=== PATIENT | female | born 1980 | race Two or more races ===

== ENCOUNTER 2017-09-14 10:24 | Emergency (ER) | payer OTHER ==
[2017-09-14 10:29] VITALS: TEMP 99; BMI 31.0
[2017-09-14] MEDS ORDERED: amLODIPine BESYLATE 10 MG TABLET (FP) PO ONE (12:50)
[2017-09-14] MEDS ORDERED: HYDROCHLOROTHIAZIDE 25 MG TABLET (FP) PO ONE (12:51)
--- NOTE | 2017-09-14 12:52 | PDOC ---
History of Present Illness <Demond Roldan - Last Filed: 09/14/17 13:02> - History of Present Illness Initial Comments: 09/14/17 12:59 "The patient is a 37 year old female with a significant PMH of HTN and diabetes who presents to the emergency department from Dr. Jiang's office for evaluation of high blood pressure. As per Dr. Jiang's note, the patient had a blood pressure of 200/118 in her office, prompting her to send the patient to the ED. The patient reports she has not taken her diabetes or HTN medications for over a year as she was uninsured and could not access her medication. The patient denies any complaints other than mild frontal headache that has been intermittent for weeks. Denies N/V. Denies neck pain. Denies CP/SOB. Denies leg swelling. Denies F/C. Allergies: NKA Past surgical history: None reported. Social history: Social alcohol use. No reported cigarette or drug use. PCP: Dr. Jiang " <Ld Kaiesr - Last Filed: 09/14/17 22:07> - General Chief Complaint: Blood Pressure Problem Stated Complaint: SENT BY PCP Time Seen by Provider: 09/14/17 12:40 Past History <Demond Roldan - Last Filed: 09/14/17 13:02> - Past Medical History CVA: No COPD: No Diabetes: Yes (NO MEDS) HTN: Yes (NO MEDS) - Surgical History Abdominal Surgery: Yes (HERNIA) - Suicide/Smoking/Psychosocial Hx Smoking History: Never smoked Hx Alcohol Use: Yes (SOCIAL) Drug/Substance Use Hx: No Substance Use Type: None <Ld Kaiser - Last Filed: 09/14/17 22:07> - Past Medical History Allergies/Adverse Reactions: Allergies Allergy/AdvReac Type Severity Reaction Status Date / Time No Known Allergies Allergy Verified 09/14/17 10:29 Home Medications: Ambulatory Orders Amlodipine Besylate [Norvasc -] 10 mg PO DAILY #7 tablet 09/14/17 Hydrochlorothiazide [Hctz -] 25 mg PO DAILY #7 tablet 09/14/17 Metoprolol Succinate 25 mg PO DAILY #7 tab.er.24h 09/14/17 Review of Systems - Review of Systems Comments:: 09/14/17 12:51 "GENERAL/CONSTITUTIONAL: No fever or chills. No weakness. HEAD, EYES, EARS, NOSE AND THROAT: No change in vision. No ear pain or discharge. No sore throat. CARDIOVASCULAR: No chest pain or shortness of breath. RESPIRATORY: No cough, wheezing, or hemoptysis. GASTROINTESTINAL: No nausea, vomiting, diarrhea or constipation. GENITOURINARY: No dysuria, frequency, or change in urination. MUSCULOSKELETAL: No joint or muscle swelling or pain. No neck or back pain. SKIN: No rash NEUROLOGIC: Mild frontal headache, no vertigo, loss of consciousness, or change in strength/sensation. ENDOCRINE: No increased thirst. No abnormal weight change. HEMATOLOGIC/LYMPHATIC: No anemia, easy bleeding, or history of blood clots. ALLERGIC/IMMUNOLOGIC: No hives or skin allergy. " <Ld Kaiser - Last Filed: 09/14/17 22:07> *Physical Exam - Vital Signs Last Vital Signs Temp Pulse Resp BP Pulse Ox 99.0 F 76 20 183/109 99 09/14/17 10:25 09/14/17 10:25 09/14/17 10:25 09/14/17 10:25 09/14/17 10:25 <Demond Roldan - Last Filed: 09/14/17 13:02> - Vital Signs Last Vital Signs Temp Pulse Resp BP Pulse Ox 99.0 F 76 20 183/109 99 09/14/17 10:25 09/14/17 10:25 09/14/17 10:25 09/14/17 10:25 09/14/17 10:25 - Physical Exam Comments: 09/14/17 12:51 "GENERAL: Awake, alert, and fully oriented, in no acute distress HEAD: No signs of trauma EYES: PERRLA, EOMI, sclera anicteric, conjunctiva clear ENT: Auricles normal inspection, hearing grossly normal, nares patent, oropharynx clear without exudates. Moist mucosa NECK: Nontender, no stepoffs, Normal ROM, supple, no lymphadenopathy, JVD, or masses LUNGS: Breath sounds equal, clear to auscultation bilaterally. No wheezes, and no crackles HEART: Regular rate and rhythm, normal S1 and S2, no murmurs, rubs or gallops ABDOMEN: Soft, nontender, normoactive bowel sounds. No guarding, no rebound. No masses EXTREMITIES: Normal range of motion, no edema. No clubbing or cyanosis. No cords, erythema, or tenderness NEUROLOGICAL: Cranial nerves II through XII intact. 5/5 strength and sensation in all extremities, Normal speech, normal gait SKIN: Warm, Dry, normal turgor, no rashes or lesions noted. " <Ou,Ld - Last Filed: 09/14/17 22:07> ED Treatment Course - LABORATORY CBC & Chemistry Diagram: 09/14/17 13:50 09/14/17 13:50 - RADIOLOGY Radiology Studies Ordered: Category Date Time Status HEAD CT WITHOUT CONTRAST [CT] Stat CT Scan 09/14/17 12:48 Ordered <Ou,Ld - Last Filed: 09/14/17 22:07> Medical Decision Making - Medical Decision Making 09/14/17 12:50 37 F with DM and HTN presenting to ER for elevated BP. Pt only complains of mild headache at this time but with non-focal neuro exam. - Labs - EKG - CT head non-con - Restart home norvasc and HCTZ 09/14/17 16:28 CBC,CMP WBC 9.6 K/mm3 (4.0-10.0) 09/14/17 13:50 RBC 4.89 M/mm3 (3.60-5.2) 09/14/17 13:50 Hgb 14.1 GM/dL (10.7-15.3) 09/14/17 13:50 Hct 42.9 % (32.4-45.2) 09/14/17 13:50 MCV 87.6 fl (80-96) 09/14/17 13:50 MCH 28.8 pg (25.7-33.7) 09/14/17 13:50 MCHC 32.8 g/dl (32.0-36.0) 09/14/17 13:50 RDW 14.3 % (11.6-15.6) 09/14/17 13:50 Plt Count 403 K/MM3 (134-434) D 09/14/17 13:50 MPV 7.9 fl (7.5-11.1) 09/14/17 13:50 Neutrophils % 67.1 % (42.8-82.8) 09/14/17 13:50 Lymphocytes % 25.2 % (8-40) 09/14/17 13:50 Monocytes % 7.2 % (3.8-10.2) 09/14/17 13:50 Eosinophils % 0.2 % (0-4.5) 09/14/17 13:50 Basophils % 0.3 % (0-2.0) 09/14/17 13:50 Sodium 141 mmol/L (136-145) 09/14/17 13:50 Potassium 3.4 mmol/L (3.5-5.1) L 09/14/17 13:50 Chloride 100 mmol/L (98-107) 09/14/17 13:50 Carbon Dioxide 31 mmol/L (21-32) 09/14/17 13:50 Anion Gap 10 (8-16) 09/14/17 13:50 BUN 9 mg/dL (7-18) 09/14/17 13:50 Creatinine 0.7 mg/dL (0.55-1.02) 09/14/17 13:50 Creat Clearance w eGFR > 60 (>60) 09/14/17 13:50 Random Glucose 178 mg/dL (74-106) H 09/14/17 13:50 Calcium 9.1 mg/dL (8.5-10.1) 09/14/17 13:50 Total Bilirubin 0.2 mg/dL (0.2-1.0) 09/14/17 13:50 AST 18 U/L (15-37) 09/14/17 13:50 ALT 32 U/L (12-78) 09/14/17 13:50 Alkaline Phosphatase 109 U/L (45-117) 09/14/17 13:50 Creatine Kinase 298 IU/L (26-192) H 09/14/17 13:50 Creatine Kinase Index 0.4 % (0.0-5.0) 09/14/17 13:50 CK-MB (CK-2) 1.328 ng/mL (0.5-3.6) 09/14/17 13:50 Troponin I < 0.02 ng/ml (0.00-0.05) 09/14/17 13:50 Total Protein 7.8 g/dl (6.4-8.2) 09/14/17 13:50 Albumin 3.6 g/dl (3.4-5.0) 09/14/17 13:50 CTH negative UA with blood, pt states she is currently on her period. Spoke with Dr. Jiang's office and confirmed that they would be able to see pt in office tomorrow. Pt reassessed - now asymptomatic. Pressure is improved. Pt is well appearing, clinically stable for DC. I discussed the physical exam findings, ancillary test results and final diagnoses with the patient. I answered all of the patient's questions. The patient was satisfied with the care received and felt comfortable with the discharge plan and treatment plan. The patient agrees to follow up with the primary care physician within 24-72 hours. <Ld Kaiser - Last Filed: 09/14/17 22:07> *DC/Admit/Observation/Transfer - Attestations Scribe Attestion: 09/14/17 13:02 Documentation prepared by Demond Roldan, acting as medical billing assistant for Ld Kaiser MD. <Demond Roldan - Last Filed: 09/14/17 13:02> - Attestations Physician Attestion: 09/14/17 16:36 I, Dr. Ld Kaiser MD, attest that this document has been prepared under my direction and personally reviewed by me in its entirety. I further attest, that it accurately reflects all work, treatment, procedures and medical decision -making performed by me. <Ld Kaiser - Last Filed: 09/14/17 22:07> Diagnosis at time of Disposition: Hypertension - Discharge Dispostion Disposition: HOME Condition at time of disposition: Good - Prescriptions Prescriptions: Amlodipine Besylate [Norvasc -] 10 mg PO DAILY #7 tablet Hydrochlorothiazide [Hctz -] 25 mg PO DAILY #7 tablet Metoprolol Succinate 25 mg PO DAILY #7 tab.er.24h - Referrals Referrals: Lou Jiang MD [Primary Care Provider] - - Patient Instructions Printed Discharge Instructions: DI for High Blood Pressure Additional Instructions: You must see Dr. Jiang TOMORROW to have your blood pressure medications adjusted. If you are unable to see Dr. Jiang, hot die picker the prescriptions for your blood pressure medications at the [facility] at [address] [place] [address]. Take them as prescribed. This is only a 1 week supply, so you MUST follow up with Dr. Jiang as soon as possible. Failure to control your blood pressure can result in serious heart disease, kidney failure, other illness, disability, or . If you experience chest pain, shortness of breath, or any other concerning symptoms, return to the ER immediately. - Post Discharge Activity
[2017-09-14] MEDS ORDERED: HYDROCHLOROTHIAZIDE 25 MG TABLET (FP) ONE (13:10)
[2017-09-14] MEDS ORDERED: amLODIPine BESYLATE 5 MG TABLET (FP) ONE (13:10)
[2017-09-14 14:27] LABS: BASO % 0.3 % (0-2.0); EOS % 0.2 % (0-4.5); HEMATOCRIT 42.9 % (32.4-45.2); HEMOGLOBIN 14.1 GM/dL (10.7-15.3); LYMPH % 25.2 % (8-40); MCH 28.8 pg (25.7-33.7); MCHC 32.8 g/dl (32.0-36.0); MEAN CELL VOLUME 87.6 fl (80-96); MEAN PLT VOLUME 7.9 fl (7.5-11.1); MONO % 7.2 % (3.8-10.2); NEUT % 67.1 % (42.8-82.8); PLATELET COUNT 403 K/MM3 (134-434); RBC 4.89 M/mm3 (3.60-5.2); RDW 14.3 % (11.6-15.6); WHITE BLOOD COUNT 9.6 K/mm3 (4.0-10.0)
[2017-09-14 14:35] LABS: ALBUMIN 3.6 g/dl (3.4-5.0); ANION GAP 10 (8-16); BLOOD UREA NITROGEN 9 mg/dL (7-18); CALCIUM 9.1 mg/dL (8.5-10.1); CHLORIDE 100 mmol/L (98-107); CO2 31 mmol/L (21-32); CREATININE 0.7 mg/dL (0.55-1.02); GLUCOSE,RANDOM 178 mg/dL (74-106); POTASSIUM 3.4 mmol/L (3.5-5.1); SGOT/AST 18 U/L (15-37); SGPT/ALT 32 U/L (12-78); SODIUM 141 mmol/L (136-145); URINE APPEARANCE SLCLOUDY; URINE BILIRUBIN NEGATIVE (NEGATIVE); URINE BLOOD 3+ (NEGATIVE); URINE COLOR RED; URINE GLUCOSE (UA) 3+ (NEGATIVE); URINE KETONE TRACE (NEGATIVE); URINE LEUK ESTERASE NEGATIVE (NEGATIVE); URINE NITRITE NEGATIVE (NEGATIVE); URINE UROBILINOGEN NEGATIVE mg/dL (0.2-1.0)
[2017-09-14 14:40] LABS: ALK PHOS 109 U/L (45-117); BILIRUBIN,TOTAL 0.2 mg/dL (0.2-1.0); TOT PROT 7.8 g/dl (6.4-8.2)
[2017-09-14 14:49] LABS: URINE PROTEIN 2+ (NEGATIVE)
[2017-09-14 14:55] LABS: EPI CELLS FEW /HPF (FEW)
--- NOTE | 2017-09-14 15:24 | EKG ---
Test Reason : Blood Pressure : / mmHG Vent. Rate : 068 BPM Atrial Rate : 068 BPM P-R Int : 128 ms QRS Dur : 084 ms QT Int : 416 ms P-R-T Axes : 029 -08 064 degrees QTc Int : 442 ms NORMAL SINUS RHYTHM POSSIBLE LEFT ATRIAL ENLARGEMENT LEFT VENTRICULAR HYPERTROPHY NONSPECIFIC ST AND T WAVE ABNORMALITY ABNORMAL ECG NO PREVIOUS ECGS AVAILABLE Confirmed by NISH SNOW MD ([id number]) on 09/14/2017 3:24:01 PM Referred By: Confirmed By:NISH SNOW MD
[2017-09-14] MEDS ORDERED: ACETAMINOPHEN 500 MG TABLET (FP) PO ONE (15:30)
[2017-09-14] MEDS ORDERED: LABETALOL HCL 200 MG TABLET (FP) PO ONE (15:36)
[2017-09-14] MEDS ORDERED: ACETAMINOPHEN 325 MG TABLET (FP) ONE (15:41)
[2017-09-14] MEDS ORDERED: LABETALOL HCL 100 MG TABLET (FP) ONE (15:41)
[2017-09-14 17:26] VITALS: BP 137/86; PULSE 82
== END 2017-09-14 17:26 | disposition home or self-care (01) ==
LOC: JER 10:24
DX: I10 Essential (primary) hypertension (principal); E11.9 Type 2 diabetes mellitus without complications
CPT/HCPCS: 36415; 70450-TC; 80053; 81003; 81015; 82550; 82553; 84484; 84703; 85025; 93005; 93010; 99283-25

== ENCOUNTER 2019-05-23 16:53 | Emergency (ER) | payer OTHER ==
[2019-05-23 17:14] VITALS: TEMP 98.3; BMI 29.5
[2019-05-23] MEDS ORDERED: FAMOTIDINE 20 MG/50 ML IVPB 20 MG/50 ML MG IVPB ONE ×2 (19:15→19:56)
[2019-05-23] MEDS ORDERED: ONDANSETRON 4 MG/2 ML VIAL IVPB ONE (19:15)
[2019-05-23] MEDS ORDERED: SODIUM CHLORIDE 1,000 ML IV STA (19:15)
[2019-05-23] MEDS ORDERED: ONDANSETRON 4 MG/2 ML VIAL ONE (19:56)
--- NOTE | 2019-05-23 20:01 | PDOC ---
Attending Attestation - Resident Resident Name: Shyann Snyder - ED Attending Attestation I have performed the following: I have examined & evaluated the patient, The case was reviewed & discussed with the resident, I agree w/resident's findings & plan - HPI HPI: 05/23/19 21:53 see resident hpi - Physicial Exam PE: 05/23/19 21:53 agree with resident exam - Medical Decision Making 05/23/19 21:54 39-year-old female with nausea and diarrhea status post recent trip to the [facility] labs are unremarkable other than slightly elevated blood glucose Patient is asymptomatic on reevaluation at 10 PM IV fluids and antacids. Plan for discharge home with outpatient follow-up 05/23/19 21:54
[2019-05-23 20:10] LABS: BASO % 0.6 % (0-2.0); EOS % 0.5 % (0-4.5); HEMATOCRIT 41.5 % (32.4-45.2); HEMOGLOBIN 13.7 GM/dL (10.7-15.3); LYMPH % 23.6 % (8-40); MCH 28.7 pg (25.7-33.7); MCHC 33.1 g/dl (32.0-36.0); MEAN CELL VOLUME 86.7 fl (80-96); MEAN PLT VOLUME 7.2 fl (7.5-11.1); MONO % 11.4 % (3.8-10.2); NEUT % 63.9 % (42.8-82.8); PLATELET COUNT 430 K/MM3 (134-434); RBC 4.79 M/mm3 (3.60-5.2); RDW 16.3 % (11.6-15.6); WHITE BLOOD COUNT 8.4 K/mm3 (4.0-10.0)
--- NOTE | 2019-05-23 20:28 | PDOC ---
History of Present Illness - General Chief Complaint: Pain, Acute Stated Complaint: NAUSEA/VOMITING/DIARRHEA Time Seen by Provider: 05/23/19 19:06 History Source: Patient Exam Limitations: Language Barrier - History of Present Illness Travel History: Yes ([place]) Initial Comments: 05/23/19 20:24 39yo F with PMH of HTN, DM presenting to ED with complaints of abdominal pain, nausea and diarrhea x5d. She travelled to [place] 1 week ago and returned 2d ago on Tuesday. She says she ate some meat on Tuesday and since then she has been having loose/liquid stools. Her has been having similar symptoms as well. She says the abdominal pain feels colicky/gassy. She denies vomiting, fevers, bloody stools, headaches, chest pain, sob, urinary symptoms. LMP 1w ago. PMD: Din PMH: see hpi Meds: see med rec Allergies: nkda Past History - Past Medical History Allergies/Adverse Reactions: Allergies Allergy/AdvReac Type Severity Reaction Status Date / Time No Known Allergies Allergy Verified 05/23/19 17:14 Home Medications: Ambulatory Orders Amlodipine Besylate [Norvasc -] 10 mg PO DAILY #7 tablet 09/14/17 Hydrochlorothiazide [Hctz -] 25 mg PO DAILY #7 tablet 09/14/17 Metoprolol Succinate 25 mg PO DAILY #7 tab.er.24h 09/14/17 CVA: No COPD: No Diabetes: Yes (NO MEDS) HTN: Yes (NO MEDS) - Surgical History Abdominal Surgery: Yes (HERNIA) - Psycho Social/Smoking Cessation Hx Smoking History: Never smoked Hx Alcohol Use: Yes Drug/Substance Use Hx: No Substance Use Type: None Review of Systems - Review of Systems Constitutional: No: Symptoms Reported HEENTM: No: Symptoms Reported Respiratory: No: Symptoms reported Cardiac (ROS): No: Symptoms Reported ABD/GI: Yes: See HPI : No: Symptoms Reported Musculoskeletal: No: Symptoms Reported Integumentary: No: Symptoms Reported Neurological: No: Symptoms reported *Physical Exam - Vital Signs Last Vital Signs Temp Pulse Resp BP Pulse Ox 98.3 F 73 17 161/103 H 98 05/23/19 17:12 05/23/19 18:55 05/23/19 18:55 05/23/19 18:55 05/23/19 17:12 - Physical Exam General Appearance: Yes: Nourished, Appropriately Dressed. No: Apparent Distress HEENT: positive: EOMI, VLADIMIR, Normal ENT Inspection Neck: positive: Trachea midline, Supple Respiratory/Chest: positive: Lungs Clear, Normal Breath Sounds Cardiovascular: positive: Regular Rhythm, Regular Rate, S1, S2. negative: Edema , JVD, Murmur Vascular Pulses: Dorsalis-Pedis (R): 2+, Doralis-Pedis (L): 2+ Gastrointestinal/Abdominal: positive: Normal Bowel Sounds, Soft. negative: Tender, Distended, Guarding, Rebound, Tenderness Musculoskeletal: positive: Normal Inspection Extremity: positive: Normal Capillary Refill. negative: Swelling, Calf Tenderness Integumentary: positive: Normal Color, Dry, Warm Neurologic: positive: rail car repairer II-XII NML intact, Fully Oriented, Alert, Normal Mood/ Affect, Normal Response, Motor Strength 12/31 ED Treatment Course - LABORATORY CBC & Chemistry Diagram: 05/23/19 20:00 05/23/19 20:00 - ADDITIONAL ORDERS Additional order review: 05/23/19 20:00 RBC 4.79 MCV 86.7 MCHC 33.1 RDW 16.3 H MPV 7.2 L Neutrophils % 63.9 Lymphocytes % 23.6 Monocytes % 11.4 H Eosinophils % 0.5 D Basophils % 0.6 - Medications Given in the ED: ED Medications Discontinued Medications Generic Name Dose Route Start Last Admin Trade Name Freq PRN Reason Stop Dose Admin Famotidine/Sodium Chloride 20 mg in 50 mls @ 100 mls/hr 05/23/19 19:15 20:07 Pepcid 20 Mg Premixed Ivpb - IVPB 05/23/19 19:44 100 mls/hr ONCE ONE Administration Sodium Chloride 1,000 mls @ 1,000 mls/hr 05/23/19 19:15 05/23/19 20:07 Normal Saline - IV 05/23/19 20:14 1,000 mls/hr ASDIR STA Administration Ondansetron HCl 4 mg 05/23/19 19:15 05/23/19 20:07 Zofran Injection IVPB 05/23/19 19:16 4 mg ONCE ONE Administration Medical Decision Making - Medical Decision Making 05/23/19 20:27 39yo F with PMH of HTN presenting to ED with complaints of abdominal pain, nausea and diarrhea x5d. She travelled to [place] 1 week ago and returned 2d ago on Tuesday. She says she ate some meat on Tuesday and since then she has been having loose/liquid stools. Her has been having similar symptoms as well. She says the abdominal pain feels colicky/gassy. She denies vomiting, fevers, bloody stools, headaches, chest pain, sob, urinary symptoms. LMP 1w ago. Pt presenting hypertensive. Says she has been having poor po intake due to nausea. Appears well. benign abdominal exam. Will get basic labs, ua will give fluids, zofran, pepcid. reassess. 05/23/19 21:49 labs wnl. patient feeling better. Safe for dc home. Will give return precautions. Pt agrees to plan. Discharge - Discharge Information Problems reviewed: Yes Clinical Impression/Diagnosis: Diarrhea Qualifiers: Diarrhea type: unspecified type Qualified Code(s): R19.7 - Diarrhea, unspecified Condition: Improved Disposition: HOME - Admission No - Follow up/Referral Referrals: Lou Jiang MD [Primary Care Provider] - - Patient Discharge Instructions Patient Printed Discharge Instructions: DI for Diarrhea and Traveler's Diarrhea -- Adult Additional Instructions: You were seen in the emergency room today for diarrhea. This is likely due to a food you ate while traveling. The diarrhea may last for a few days. Keep yourself well hydrated. Come back to the emergency room if pain gets worse, there is blood in the stool , you develop fever, you are unable to eat or drink anything or if any new concerning symptom develops. Thank you Lo vieron hoy en la caty de emergencias por diarrea. [place] probablemente se deba a rodrigue comida que comi mientras viajaba. La diarrea puede durar unos perez. Mantente sharath hidratado. Regrese a la caty de emergencias si el dolor empeora, hay anna en las heces, desarrolla fiebre, no puede comer ni beber nada o si se desarrolla algn sntoma nuevo. Leo - Post Discharge Activity
[2019-05-23 20:39] LABS: ALBUMIN 3.5 g/dl (3.4-5.0); BILIRUBIN,TOTAL 0.2 mg/dL (0.2-1); BLOOD UREA NITROGEN 13.4 mg/dL (7-18); CALCIUM 9.6 mg/dL (8.5-10.1); CREATININE 0.8 mg/dL (0.55-1.3); POTASSIUM 3.5 mmol/L (3.5-5.1); TOT PROT 7.3 g/dl (6.4-8.2)
[2019-05-23 21:35] LABS: URINE APPEARANCE CLEAR; URINE BILIRUBIN NEGATIVE (NEGATIVE); URINE COLOR YELLOW; URINE GLUCOSE (UA) 3+ (NEGATIVE); URINE KETONE NEGATIVE (NEGATIVE); URINE LEUK ESTERASE NEGATIVE (NEGATIVE); URINE NITRITE NEGATIVE (NEGATIVE); URINE PROTEIN NEGATIVE (NEGATIVE); URINE UROBILINOGEN 0.2 mg/dL (0.2-1.0)
[2019-05-23 21:57] VITALS: BP 159/98; PULSE 74
== END 2019-05-23 21:58 | disposition home or self-care (01) ==
LOC: JER 16:53
PROC: 3E033GC Introduction of Other Therapeutic Substance into Peripheral Vein, Percutaneous Approach (ICD-10-PCS; principal; 2019-05-23)
PROC: 3E033GC Introduction of Other Therapeutic Substance into Peripheral Vein, Percutaneous Approach (ICD-10-PCS; 2019-05-23)
DX: R19.7 Diarrhea, unspecified (principal); I10 Essential (primary) hypertension; E11.9 Type 2 diabetes mellitus without complications
CPT/HCPCS: 36415; 80053; 81003; 85025; 87086; 99283-25; J7030

== ENCOUNTER 2019-06-06 07:25 | Emergency (ER) | payer OTHER ==
[2019-06-06 07:40] VITALS: BMI 29.5
--- NOTE | 2019-06-06 09:17 | PDOC ---
Documentation entered by Ken Cleaning SCRIBE, acting as scribe for Maxwell Dubon MD. Maxwell Dubon MD: This documentation has been prepared by the Black bear Daniel, SCRIBE, under my direction and personally reviewed by me in its entirety. I confirm that the documentation accurately reflects all work, treatment, procedures, and medical decision making performed by me. History of Present Illness - General Chief Complaint: Pain, Acute Stated Complaint: ABD PAIN History Source: Patient Exam Limitations: No Limitations - History of Present Illness Initial Comments: 06/06/19 08:59 The patient is a 39 year old female with a past medical history of gallstones, HTN, and diabetes here today for evaluation of abdominal pain. The patient reports that developed abdominal pain around 2 AM this morning and came to the ED on the instructions of her GI. She describes it as a 9/10 in severity and notes associated nausea and 2 episodes of non bloody diarrhea around 2 AM. Patient denies headache, lightheadedness. Denies fever, chills. Denies chest pain, shortness of breath. Denies vomiting. LMP: 05/16/19 Allergies: NKA PCP: Lou Jiang GI: Eloy Gusman Past History - Past Medical History Allergies/Adverse Reactions: Allergies Allergy/AdvReac Type Severity Reaction Status Date / Time No Known Allergies Allergy Verified 06/06/19 07:31 Home Medications: Ambulatory Orders Amlodipine Besylate [Norvasc -] 10 mg PO DAILY #7 tablet 09/14/17 Hydrochlorothiazide [Hctz -] 25 mg PO DAILY #7 tablet 09/14/17 Metoprolol Succinate 25 mg PO DAILY #7 tab.er.24h 09/14/17 CVA: No COPD: No Diabetes: Yes (NO MEDS) HTN: Yes (NO MEDS) - Surgical History Abdominal Surgery: Yes (HERNIA) - Psycho Social/Smoking Cessation Hx Smoking History: Never smoked Hx Alcohol Use: Yes Drug/Substance Use Hx: No Substance Use Type: None Review of Systems - Review of Systems Able to Perform ROS?: Yes Comments:: 06/06/19 08:59 CONSTITUTIONAL: No fever, no chills, no fatigue EYES: No visual changes ENT: No ear pain, no sore throat CARDIOVASCULAR: No chest pain, no palpitations RESPIRATORY: No cough, no SOB GI: +abdominal pain. +nausea. +diarrhea. No vomiting, no constipation GENITOURINARY: No dysuria, no frequency, no hematuria MUSKULOSKELETAL: No backpain, no joint pain, no myalgias SKIN: No rash NEURO: No headache *Physical Exam - Vital Signs Last Vital Signs Temp Pulse Resp BP Pulse Ox 98.1 F 69 16 195/109 H 98 06/06/19 07:27 06/06/19 07:27 06/06/19 07:27 06/06/19 07:27 06/06/19 07:27 - Physical Exam Comments: 06/06/19 08:59 CONSTITUTIONAL: Well-appearing; well-nourished; in no apparent distress HEAD: Normocephalic; atraumatic EYES: PERRL; EOM intact, no slcera icterus ENMT: External appears normal; normal oropharynx NECK: Supple; non-tender; no cervical lymphadenopathy CARD: Normal S1, S2; no murmurs, rubs, or gallops RESP: Normal chest excursion with respiration; breath sounds clear and equal bilaterally; no wheezes, rhonchi, or rales ABD: +mild right upper quadrant pain. Soft, non-distended; no palpable organomegaly, no palpable hernias EXT: Normal ROM in all four extremities; non-tender to palpation; distal pulses intact SKIN: Warm, dry, no rash NEURO: No focal neurological deficiencies. ED Treatment Course - LABORATORY CBC & Chemistry Diagram: 06/06/19 09:02 06/06/19 09:02 - RADIOLOGY Radiology Studies Ordered: Category Date Time Status ABDOMEN US -LIMITED [US] Stat Ultrasound 06/06/19 08:51 Ordered Medical Decision Making - Medical Decision Making 06/06/19 09:16 Patient is well-appearing 39-year-old female with history of cholelithiasis who presents with atraumatic right upper quadrant pain associated with 2 bouts of loose watery stools and intermittent nausea. In the ER, patient is noted to be awake and alert, nontoxic-appearing, hypertensive on initial evaluation with minimal right upper quadrant tenderness to deep palpation only. Will rule out occult cholecystitis. Will hydrate. Will evaluate for electrolyte abnormalities. 12:39 06/06/2019 Patient reassessed. Patient is resting comfortably with minimal discomfort. Abdominal exam reveals no focal tenderness to palpation at this time. Patient tolerates p.o. CBC/is within normal limits without significant leukocytosis. CMP reveals normal LFTs. Right upper quadrant ultrasound reveals fatty liver and cholelithiasis without evidence of cholecystitis. Will discharge patient with outpatient follow-up with GI and surgery for evaluation of cholelithiasis. Discharge - Discharge Information Problems reviewed: Yes Clinical Impression/Diagnosis: Gall stones Condition: Stable Disposition: HOME - Admission No - Follow up/Referral Referrals: Lou Jiang MD [Primary Care Provider] - Ld Sherman MD [Staff Physician] - - Patient Discharge Instructions Patient Printed Discharge Instructions: DI for Gallstones Print Language: LATVIAN - Post Discharge Activity
[2019-06-06 09:18] LABS: BASO % 0.7 % (0-2.0); EOS % 0.2 % (0-4.5); HEMATOCRIT 39.6 % (32.4-45.2); HEMOGLOBIN 13.4 GM/dL (10.7-15.3); LYMPH % 19.5 % (8-40); MCH 28.9 pg (25.7-33.7); MCHC 33.8 g/dl (32.0-36.0); MEAN CELL VOLUME 85.5 fl (80-96); MEAN PLT VOLUME 7.6 fl (7.5-11.1); MONO % 8.1 % (3.8-10.2); NEUT % 71.5 % (42.8-82.8); PLATELET COUNT 407 K/MM3 (134-434); RBC 4.63 M/mm3 (3.60-5.2); RDW 16.5 % (11.6-15.6); WHITE BLOOD COUNT 9.6 K/mm3 (4.0-10.0)
[2019-06-06] MEDS ORDERED: KETOROLAC TROMETHAMINE 15 MG/ML VIAL IVPUSH ONE (09:45)
[2019-06-06 09:52] LABS: EPI CELLS 2.5 /HPF (0-5/HPF); HYALINE CASTS 2 /lpf (0-8); PH,URINE 7.5 (5.0-8.0); URINE APPEARANCE CLEAR; URINE BACTERIA 79.5 /hpf (NEGATIVE); URINE BILIRUBIN NEGATIVE (NEGATIVE); URINE COLOR YELLOW; URINE GLUCOSE (UA) 2+ (NEGATIVE); URINE KETONE NEGATIVE (NEGATIVE); URINE LEUK ESTERASE NEGATIVE (NEGATIVE); URINE NITRITE NEGATIVE (NEGATIVE); URINE PROTEIN 1+ (NEGATIVE); URINE RBC 0 /hpf (0-4); URINE UROBILINOGEN 0.2 mg/dL (0.2-1.0); URINE WBC 2 /hpf (0-5)
[2019-06-06 10:02] LABS: ALBUMIN 3.4 g/dl (3.4-5.0); BILIRUBIN,TOTAL 0.3 mg/dL (0.2-1); CALCIUM 8.9 mg/dL (8.5-10.1); CREATININE 0.8 mg/dL (0.55-1.3); POTASSIUM 3.4 mmol/L (3.5-5.1); TOT PROT 7.2 g/dl (6.4-8.2)
[2019-06-06] MEDS ORDERED: KETOROLAC TROMETHAMINE 15 MG/ML VIAL ONE (11:31)
[2019-06-06 12:53] VITALS: BP 167/79; PULSE 78; TEMP 98.5
== END 2019-06-06 13:07 | disposition home or self-care (01) ==
LOC: JER 07:25
PROC: 3E0333Z Introduction of Anti-inflammatory into Peripheral Vein, Percutaneous Approach (ICD-10-PCS; principal; 2019-06-06)
DX: K80.80 Other cholelithiasis without obstruction (principal); I10 Essential (primary) hypertension; E11.9 Type 2 diabetes mellitus without complications
CPT/HCPCS: 36415; 76705-TC; 80053; 81003; 83690; 84703; 85025; 96374; 99284-25

== ENCOUNTER 2019-06-15 04:38 | Day surgery (SDC) | payer OTHER ==
[2019-06-14 12:45] VITALS: BMI 29.5
[~2019-06-15 04:38] MED LIST: ceFAZolin SODIUM 1 GM VIAL IVPB ONE
[2019-06-15] MEDS ORDERED: BUPIVACAINE HCL/PF 0.5% (5 MG/ML) 30 ML VIAL IJ ONE ×2 (09:02→11:10)
--- NOTE | 2019-06-15 09:41 | HP ---
History & Physical Update - History History: No Change - Physical Physical: No Change - Assessment Assessment: No Change - Plan Plan: No Change (for lap maribel possible open; r/b/t/a's d/w the patient in the office and again this AM; informed consent obtained; d/w her in Bengali and Swedish.)
[2019-06-15] MEDS ORDERED: fentaNYL CITRATE 250 MCG/5 ML VIAL ONE (09:51)
[2019-06-15] MEDS ORDERED: PROPOFOL 20 ML ONE (09:51)
[2019-06-15] MEDS ORDERED: MIDAZOLAM HCL 2 MG/2 ML SINGLE DOSE VIAL ONE (09:52)
[2019-06-15] MEDS ORDERED: ceFAZolin SODIUM 1 GM VIAL ONE (10:25)
[2019-06-15] MEDS ORDERED: ceFAZolin SODIUM 1 GM VIAL IVPB ONE (10:25)
[2019-06-15] MEDS ORDERED: DEXAMETHASONE SOD PHOSPHATE 4 MG/1 ML VIAL ONE (11:05)
[2019-06-15] MEDS ORDERED: GLYCOPYRROLATE 0.2 MG/1 ML VIAL ONE (11:10)
[2019-06-15] MEDS ORDERED: NEOSTIGMINE METHYLSULFATE 0.5 MG/ML - 10 ML MDV ONE (11:10)
[2019-06-15] MEDS ORDERED: BENZOIN/ALOE VERA/STORAX/TOLU 58 ML BOTTLE TP ONE (11:12)
--- NOTE | 2019-06-15 11:30 | OP ---
Operative Note - Note: Operative Date: 06/15/19 Pre-Operative Diagnosis: cholelithiasis/chronic cholecystitis Operation: laparoscopic cholecystectomy Findings: chronic cholecystitis/cholelithiasis Post-Operative Diagnosis: Same as Pre-op Surgeon: Ld Sherman Electrophysiology Technician: Virginia Holt Anesthesiologist/RELIEF MAP MODELER: Nilda Salas Anesthesia: General Specimens Removed: gallbladder and contents Estimated Blood Loss (mls): 10 Drains & Tubes with Location: none
[2019-06-15] MEDS ORDERED: KETOROLAC TROMETHAMINE 30 MG/1 ML VIAL ONE (11:37)
[2019-06-15] MEDS ORDERED: ACETAMINOPHEN INJECTION 100 ML IVPB ONE (11:37)
[2019-06-15] MEDS ORDERED: KETOROLAC TROMETHAMINE 30 MG/1 ML VIAL IVPUSH ONE ×2 (11:40)
[2019-06-15] MEDS ORDERED: ACETAMINOPHEN 1000 MG/100 ML VIAL (NON FORMULARY) IVPB ONE ×2 (11:40→11:45)
[2019-06-15] MEDS ORDERED: ONDANSETRON 4 MG/2 ML VIAL IVPUSH PRN (11:40)
[2019-06-15] MEDS ORDERED: oxyCODONE HCL 5 MG TABLET PO PRN (11:40)
[2019-06-15] MEDS ORDERED: LACTATED RINGERS SOLUTION 1,000 ML IV SCH (11:45)
[2019-06-15 14:27] VITALS: TEMP 98.9
[2019-06-15 15:42] VITALS: BP 143/81; PULSE 76
--- NOTE | 2019-06-18 15:52 | OP ---
DATE OF OPERATION: 06/15/2019 PREOPERATIVE DIAGNOSIS: Chronic cholecystitis and cholelithiasis. POSTOPERATIVE DIAGNOSIS: Chronic cholecystitis and cholelithiasis. PROCEDURE: Laparoscopic cholecystectomy. SURGEON: Ld Sherman MD FOOTBALL PAD REPAIRER: BRADEN Osullivan ANESTHESIA: General. OPERATIVE FINDINGS: Chronic cholecystitis and cholelithiasis. The rest of the findings were unremarkable. DESCRIPTION OF PROCEDURE: The patient was placed on the operating room table in supine position. After the induction of general anesthesia, the patient's abdomen was prepped with ChloraPrep and draped in sterile fashion. Time-out was taken and then pneumoperitoneum established above the umbilicus using a Veress needle. Once 15 mm of intra- abdominal pressure was obtained, a 5-mm port was placed at the umbilicus. Additional lateral 5-mm ports and a subxiphoid 12-mm port were placed and laparoscopy carried out, and the previously noted findings were observed. The gallbladder was placed on cephalad and lateral traction, and dissection was begun at the neck of the gallbladder where the peritoneum was opened medially and laterally using blunt and sharp dissection and electrocautery. Dissection continued in the triangle of Calot where the cystic duct was identified coursing from the neck of the gallbladder distally to the common bile duct. It was dissected proximally and distally for length. Similarly, the artery was similarly identified and dissected. A critical view of safety was taken, and then the cystic duct divided proximally and distally using Endo Mitul after it was clipped twice proximally and distally with large hemoclips. The artery was similarly clipped and divided. Hemostasis was checked for and noted to be good and then the gallbladder was removed from the liver bed in a retrograde fashion using electrocautery. Prior to removal from the edge of the liver, hemostasis was again verified and then the gallbladder removed from the edge of the liver, placed in an EndoCatch, and brought out through the subxiphoid port. Pneumoperitoneum was reestablished, hemostasis verified again, and then the 5-mm lateral and subxiphoid ports were removed under laparoscopic vision without evidence of bleeding from the port sites. The umbilical port was removed and the pneumoperitoneum evacuated. All port sites were infiltrated with 0.5% Marcaine and the skin edges closed with 4- 0 Biosyn in a subcuticular and continuous fashion. Steri-Strips and Band-Aid dressings were placed and the procedure terminated at this point and the patient aroused from general anesthesia and transferred to the post anesthesia care unit in stable condition awake and alert. ESTIMATED BLOOD LOSS: 10 mL. REPLACEMENTS: Crystalloid. DRAINS: None. SPECIMENS: Gallbladder and contents to pathology. I, Ld Sherman, was physically present in the operating room from the time the patient was placed on the operating room table until she was transferred to the post anesthesia care unit in my company. MD PURNIMA [id number] MTDD
--- NOTE | 2019-06-19 17:13 | PATH ---
Surgical Pathology Report Patient Name: [facility]. Rec. #: [id number] /Age/Gender: 1980 (Age: 39) / F Account: [id number] Location: [facility] Taken: 06/15/2019 Received: 06/15/2019 Reported: 06/18/2019 Physicians: Ld Sherman MD Specimen(s) Received GALLBLADDER Clinical History Cholelithiasis, chronic cholecystitis Final Diagnosis GALLBLADDER, LAPAROSCOPIC CHOLECYSTECTOMY: CHRONIC CHOLECYSTITIS WITH CHOLELITHIASIS. Electronically Signed Meredith Rubio M.D. Gross Description Received in formalin, labeled "gallbladder," is a 7.5 x 2.5 x 2.5 cm. gallbladder with a 0.2 cm. in length portion of cystic duct attached. The outer surface is roa green with a focal defect and varies from smooth to shaggy. The lumen contains green, tenacious bile as well as a 0.4 cm in greatest dimension black, irregular cholelith. The mucosa is roa and velvety. The wall of the gallbladder measures 0.1 cm. in thickness. [employer] sections are submitted in one cassette. /06/15/2019 saudi06/15/2019
== END 2019-06-15 16:40 | disposition home or self-care (01) ==
LOC: JASU-SURG 04:38
PROVIDERS: ATTEND Surgery
PROC: 0FT44ZZ Resection of Gallbladder, Percutaneous Endoscopic Approach (ICD-10-PCS; principal; 2019-06-15 09:30)
DX: K80.44 Calculus of bile duct with chronic cholecystitis without obstruction (principal)
CPT/HCPCS: 82962; 84703; 86850; 86900; 86901; 88304-TC; 94760; J0131

== ENCOUNTER 2021-02-28 21:34 | Emergency (ER) | payer OTHER ==
[2021-02-28 21:54] VITALS: BMI 28.2
[2021-03-01] MEDS ORDERED: LIDOCAINE 5% TOPICAL PATCH TP ONE (00:51)
[2021-03-01] MEDS ORDERED: ACETAMINOPHEN 500 MG TABLET (FP) PO ONE (00:51)
[2021-03-01] MEDS ORDERED: METHOCARBAMOL 500 MG TABLET PO ONE (01:01)
[2021-03-01] MEDS ORDERED: ACETAMINOPHEN 325 MG TABLET (FP) ONE (01:18)
[2021-03-01] MEDS ORDERED: LIDOCAINE 5% TOPICAL PATCH ONE (01:19)
[2021-03-01] MEDS ORDERED: METHOCARBAMOL 500 MG TABLET ONE (01:19)
[2021-03-01 03:08] LABS: PH,URINE 5.5 (5.0-8.0); URINE APPEARANCE Clear; URINE BILIRUBIN Negative (NEGATIVE); URINE COLOR Yellow; URINE GLUCOSE (UA) 2+ (NEGATIVE); URINE KETONE Trace (NEGATIVE); URINE LEUK ESTERASE Negative (NEGATIVE); URINE NITRITE Negative (NEGATIVE); URINE PROTEIN Negative (NEGATIVE); URINE UROBILINOGEN 0.2 mg/dL (0.2-1.0)
[2021-03-01 03:13] LABS: URINE RBC 2 /uL (0-23.9); URINE WBC 16 /uL (0-25.8)
[2021-03-01 03:14] LABS: EPI CELLS 13 /uL (0-25.1); HYALINE CASTS 0 /uL (0-3.1); URINE BACTERIA 540 /uL (0-1359)
[2021-03-01 04:05] VITALS: BP 158/87; PULSE 69; TEMP 98.4
[2021-03-01] MEDS ORDERED: LIDOCAINE PATCH REMOVAL MC ONE (12:00)
== END 2021-03-01 05:19 | disposition home or self-care (01) ==
LOC: JER 21:34
DX: M54.5 Low back pain (principal); S76.311A Strain of muscle, fascia and tendon of the posterior muscle group at thigh level, right thigh, initial encounter
CPT/HCPCS: 81003; 84703; 93005; 93010; 99285-25

== ENCOUNTER 2021-03-27 04:18 | Day surgery (SDC) | payer OTHER ==
[2021-03-25 09:42] VITALS: BMI 28.2
[2021-03-27] MEDS ORDERED: LIDOCAINE HCL/PF 1% SDV 5ML VIAL ONE (07:30)
[2021-03-27] MEDS ORDERED: DEXAMETHASONE SOD PHOSPHATE 4 MG/1 ML VIAL ONE (07:30)
[2021-03-27 13:26] VITALS: BP 160/86; PULSE 78; TEMP 97.8
== END 2021-03-27 13:05 | disposition home or self-care (01) ==
LOC: JASU-SURG 04:18
PROVIDERS: ATTEND Pain Medicine Pain Medicine
DX: Z53.8 Procedure and treatment not carried out for other reasons (principal)
CPT/HCPCS: 81025

== ENCOUNTER → 2021-04-08 | Day surgery (SDC) | payer OTHER | END | disposition home or self-care (01) | LOC: JRADUS-SUR 08:14 | PROVIDERS: ATTEND Family Medicine | PROC: 0H9V3ZX Drainage of Bilateral Breast, Percutaneous Approach, Diagnostic (ICD-10-PCS; principal; 2021-04-08) | DX: D24.1 Benign neoplasm of right breast (principal) | CPT/HCPCS: 19083; 19084; 77066-TC; 87899; A4648 ==

== ENCOUNTER 2021-05-15 04:37 | Day surgery (SDC) | payer OTHER ==
[2021-05-12 17:21] VITALS: BMI 25.4
[2021-05-15] MEDS ORDERED: LIDOCAINE HCL/PF 1% SDV 5ML VIAL ONE (07:17)
[2021-05-15] MEDS ORDERED: DEXAMETHASONE SOD PHOSPHATE 10 MG/1 ML VIAL ONE (07:17)
[2021-05-15] MEDS ORDERED: LIDOCAINE HCL 1% PRESERVATIVE FREE - 30ML VIAL IJ ONE (10:49)
[2021-05-15] MEDS ORDERED: IOHEXOL 180 MG/1 ML ML IJ ONE (10:50)
[2021-05-15] MEDS ORDERED: DEXAMETHASONE SOD PHOSPHATE 10 MG/1 ML VIAL IM ONE ×2 (10:50→10:53)
[2021-05-15 11:41] VITALS: TEMP 98.9
[2021-05-15 11:43] VITALS: BP 152/91; PULSE 68
== END 2021-05-15 11:30 | disposition home or self-care (01) ==
LOC: JASU-SURG 04:37
PROVIDERS: ATTEND Pain Medicine Pain Medicine
PROC: 3E0R33Z Introduction of Anti-inflammatory into Spinal Canal, Percutaneous Approach (ICD-10-PCS; 2021-05-15)
PROC: 3E0R3BZ Introduction of Anesthetic Agent into Spinal Canal, Percutaneous Approach (ICD-10-PCS; principal; 2021-05-15 09:15)
DX: M54.16 Radiculopathy, lumbar region (principal)
CPT/HCPCS: 76000-TC-FY; 81025; J1100

== ENCOUNTER 2021-06-12 04:20 | Day surgery (SDC) | payer OTHER ==
[2021-06-08 17:46] VITALS: BMI 27.9
[2021-06-12 06:59] VITALS: TEMP 97.8
[2021-06-12] MEDS ORDERED: BUPIVACAINE HCL/PF 0.5% (5MG/ML) 10 ML VIAL ONE (07:04)
[2021-06-12] MEDS ORDERED: BUPIVACAINE HCL/PF 0.25% (2.5MG/ML) 10 ML VIAL ONE (07:04)
[2021-06-12] MEDS ORDERED: DEXAMETHASONE SOD PHOSPHATE 10 MG/1 ML VIAL ONE (07:04)
[2021-06-12] MEDS ORDERED: LIDOCAINE HCL/PF 1% SDV 5ML VIAL ONE (07:04)
[2021-06-12] MEDS ORDERED: SODIUM CHLORIDE 0.9% P/F 10 ML VIAL IJ ONE (07:14)
[2021-06-12] MEDS ORDERED: LIDOCAINE HCL/PF 2% SDV 5ML VIAL ONE (07:14)
[2021-06-12] MEDS ORDERED: LIDOCAINE 1% P/F 10 MG/ML VIAL INF ONE (08:34)
[2021-06-12] MEDS ORDERED: IOHEXOL 180 MG/1 ML ML IJ ONE (08:34)
[2021-06-12] MEDS ORDERED: BUPIVACAINE HCL/PF 0.75% 10 ML VIAL NR ONE (08:34)
[2021-06-12 09:09] VITALS: BP 139/77; PULSE 69
== END 2021-06-12 09:10 | disposition home or self-care (01) ==
LOC: JASU-SURG 04:20
PROVIDERS: ATTEND Pain Medicine Pain Medicine
PROC: 3E0T33Z Introduction of Anti-inflammatory into Peripheral Nerves and Plexi, Percutaneous Approach (ICD-10-PCS; 2021-06-12)
PROC: BR16YZZ Fluoroscopy of Lumbar Facet Joint(s) using Other Contrast (ICD-10-PCS; 2021-06-12)
PROC: 3E0T3BZ Introduction of Anesthetic Agent into Peripheral Nerves and Plexi, Percutaneous Approach (ICD-10-PCS; principal; 2021-06-12 08:15)
DX: M47.816 Spondylosis without myelopathy or radiculopathy, lumbar region (principal)
CPT/HCPCS: 76000-TC-FY; 81025; J1100

== ENCOUNTER 2021-07-03 04:27 | Day surgery (SDC) | payer OTHER ==
[2021-07-02 17:27] VITALS: BMI 27.4
[2021-07-03] MEDS ORDERED: BUPIVACAINE HCL/PF 0.5% (5MG/ML) 10 ML VIAL ONE (07:13)
[2021-07-03] MEDS ORDERED: BUPIVACAINE HCL/PF 0.25% (2.5MG/ML) 10 ML VIAL ONE (07:13)
[2021-07-03] MEDS ORDERED: LIDOCAINE HCL/PF 1% SDV 5ML VIAL ONE (07:13)
[2021-07-03] MEDS ORDERED: DEXAMETHASONE SOD PHOSPHATE 10 MG/1 ML VIAL ONE (07:13)
[2021-07-03] MEDS ORDERED: SODIUM CHLORIDE 0.9% P/F 10 ML VIAL IJ ONE (07:27)
[2021-07-03] MEDS ORDERED: LIDOCAINE HCL/PF 2% SDV 5ML VIAL ONE (07:27)
[2021-07-03] MEDS ORDERED: IOHEXOL 180 MG/1 ML ML IJ ONE ×2 (08:52→08:55)
[2021-07-03] MEDS ORDERED: LIDOCAINE HCL 1% PRESERVATIVE FREE - 30ML VIAL IJ ONE (08:55)
[2021-07-03] MEDS ORDERED: BUPIVACAINE HCL/PF 0.75% 10 ML VIAL NR ONE (08:56)
[2021-07-03 09:53] VITALS: BP 150/85; PULSE 67; TEMP 98.5
== END 2021-07-03 09:45 | disposition home or self-care (01) ==
LOC: JASU-SURG 04:27
PROVIDERS: ATTEND Pain Medicine Pain Medicine
PROC: BR16YZZ Fluoroscopy of Lumbar Facet Joint(s) using Other Contrast (ICD-10-PCS; 2021-07-03)
PROC: 3E0T3BZ Introduction of Anesthetic Agent into Peripheral Nerves and Plexi, Percutaneous Approach (ICD-10-PCS; principal; 2021-07-03 08:15)
DX: M47.816 Spondylosis without myelopathy or radiculopathy, lumbar region (principal); I10 Essential (primary) hypertension; E11.9 Type 2 diabetes mellitus without complications
CPT/HCPCS: 76000-TC-FY; 81025; J1100

== ENCOUNTER 2021-07-31 04:31 | Day surgery (SDC) | payer OTHER ==
[2021-07-30 12:58] VITALS: BMI 27.4
[2021-07-31] MEDS ORDERED: LIDOCAINE HCL/PF 2% SDV 5ML VIAL SNB ONE (14:40)
[2021-07-31] MEDS ORDERED: LIDOCAINE 1% P/F 10 MG/ML VIAL SNB ONE (14:40)
[2021-07-31] MEDS ORDERED: BUPIVACAINE HCL/PF 0.75% 10 ML VIAL NR ONE (14:40)
[2021-07-31] MEDS ORDERED: DEXAMETHASONE SOD PHOSPHATE 10 MG/1 ML VIAL IM ONE (14:40)
[2021-07-31 15:44] VITALS: TEMP 98
[2021-07-31 15:56] VITALS: BP 130/80; PULSE 74
== END 2021-07-31 15:59 | disposition home or self-care (01) ==
LOC: JASU-SURG 04:31
PROVIDERS: ATTEND Pain Medicine Pain Medicine
PROC: 3E0T3TZ Introduction of Destructive Agent into Peripheral Nerves and Plexi, Percutaneous Approach (ICD-10-PCS; principal; 2021-07-31 12:30)
DX: M47.816 Spondylosis without myelopathy or radiculopathy, lumbar region (principal)
CPT/HCPCS: 76000-TC-FY; 81025; J1100

== ENCOUNTER 2021-08-25 04:27 | Day surgery (SDC) | payer OTHER ==
[2021-08-24 09:59] VITALS: BMI 27.4
[~2021-08-25 04:27] MED LIST changes: +DEXAMETHASONE SOD PHOSPHATE 10 MG/1 ML VIAL IVPUSH ONE; +IOHEXOL 180 MG/1 ML ML IJ ONE; +LIDOCAINE HCL 1% PRESERVATIVE FREE - 30ML VIAL IJ ONE; -ceFAZolin SODIUM 1 GM VIAL IVPB ONE
[2021-08-25] MEDS ORDERED: LIDOCAINE HCL/PF 1% SDV 5ML VIAL ONE ×2 (07:16→13:46)
[2021-08-25] MEDS ORDERED: BUPIVACAINE HCL/PF 0.75% 10 ML VIAL ONE ×2 (07:16→13:47)
[2021-08-25] MEDS ORDERED: DEXAMETHASONE SOD PHOSPHATE 10 MG/1 ML VIAL ONE (07:16)
[2021-08-25] MEDS ORDERED: LIDOCAINE HCL/PF 2% SDV 5ML VIAL ONE (07:25)
[2021-08-25] MEDS ORDERED: LIDOCAINE HCL 1% PRESERVATIVE FREE - 30ML VIAL IJ ONE (13:48)
[2021-08-25] MEDS ORDERED: DEXAMETHASONE SOD PHOSPHATE 10 MG/1 ML VIAL IVPUSH ONE ×2 (13:51→14:13)
[2021-08-25] MEDS ORDERED: IOHEXOL 180 MG/1 ML ML IJ ONE ×2 (13:51→13:53)
[2021-08-25 15:02] VITALS: BP 132/86; PULSE 96; TEMP 98.7
== END 2021-08-25 15:00 | disposition home or self-care (01) ==
LOC: JASU-SURG 04:27
PROVIDERS: ATTEND Pain Medicine Pain Medicine
PROC: 3E0T3TZ Introduction of Destructive Agent into Peripheral Nerves and Plexi, Percutaneous Approach (ICD-10-PCS; principal; 2021-08-25 14:30)
PROC: BR16ZZZ Fluoroscopy of Lumbar Facet Joint(s) (ICD-10-PCS; 2021-08-25 14:30)
DX: M47.816 Spondylosis without myelopathy or radiculopathy, lumbar region (principal)
CPT/HCPCS: 76000-TC-FY; 81025; J1100

== ENCOUNTER 2022-08-10 04:47 | Day surgery (SDC) | payer OTHER ==
[2022-08-06 15:04] VITALS: BMI 27.9
[2022-08-10] MEDS ORDERED: TRIAMCINOLONE ACET 40MG/1ML VIAL ONE (07:35)
[2022-08-10] MEDS ORDERED: LIDOCAINE HCL/PF 1% SDV 5ML VIAL ONE (07:35)
[2022-08-10] MEDS ORDERED: BUPIVACAINE HCL/PF 0.5% (5MG/ML) 10 ML VIAL ONE (07:35)
[2022-08-10] MEDS ORDERED: LIDOCAINE 1% P/F 10 MG/ML VIAL PNB ONE (13:35)
[2022-08-10] MEDS ORDERED: TRIAMCINOLONE ACET 40MG/1ML VIAL IM ONE (13:37)
[2022-08-10] MEDS ORDERED: IOHEXOL 180 MG/1 ML ML IJ ONE (13:37)
[2022-08-10] MEDS ORDERED: BUPIVACAINE HCL/PF 0.5% (5 MG/ML) 30 ML VIAL IJ ONE (13:38)
[2022-08-10 14:04] VITALS: RESP 18
[2022-08-10 14:22] VITALS: BP 110/62; PULSE 60; TEMP 97.4
== END 2022-08-10 14:30 | disposition home or self-care (01) ==
LOC: JASU-SURG 04:47
PROVIDERS: ATTEND Pain Medicine Pain Medicine
PROC: 3E0U3BZ Introduction of Anesthetic Agent into Joints, Percutaneous Approach (ICD-10-PCS; 2022-08-10)
PROC: 3E0U33Z Introduction of Anti-inflammatory into Joints, Percutaneous Approach (ICD-10-PCS; principal; 2022-08-10 14:00)
DX: M53.3 Sacrococcygeal disorders, not elsewhere classified (principal)
CPT/HCPCS: 76000-TC-FY; 81025

== ENCOUNTER 2023-03-12 13:11 | Emergency (ER) | payer OTHER ==
[2023-03-12 13:23] VITALS: BP 122/71; PULSE 85; RESP 19; TEMP 98.2; BMI 27.9
[2023-03-12 14:27] LABS: BASO % 0.2 % (0-2.0); EOS % 0.2 % (0-4.5); HEMATOCRIT 44.1 % (32.4-45.2); HEMOGLOBIN 14.6 GM/dL (10.7-15.3); LYMPH % 9.4 % (8-40); MCH 28.9 pg (25.7-33.7); MCHC 33.1 g/dl (32.0-36.0); MEAN CELL VOLUME 87.3 fl (80-96); NEUT % 83.2 % (42.8-82.8); PLATELET COUNT 449 10^3/uL (134-434); RBC 5.05 M/mm3 (3.60-5.2); RDW 16.1 % (11.6-15.6); WHITE BLOOD COUNT 11.4 K/mm3 (4.0-10.0)
[2023-03-12 14:29] LABS: PH,URINE 5.5 (5.0-8.0); URINE APPEARANCE CLEAR; URINE BILIRUBIN NEGATIVE (NEGATIVE); URINE COLOR YELLOW; URINE GLUCOSE (UA) 3+ (NEGATIVE); URINE KETONE NEGATIVE (NEGATIVE); URINE LEUK ESTERASE NEGATIVE (NEGATIVE); URINE NITRITE NEGATIVE (NEGATIVE); URINE PROTEIN NEGATIVE (NEGATIVE); URINE UROBILINOGEN 0.2 mg/dL (0.2-1.0)
[2023-03-12 14:43] LABS: POTASSIUM 3.1 mmol/L (3.5-5.1)
[2023-03-12 14:45] LABS: ALBUMIN 3.8 g/dl (3.4-5.0); CALCIUM 10.5 mg/dL (8.5-10.1)
[2023-03-12 14:46] LABS: BLOOD UREA NITROGEN 16.4 mg/dL (7-18)
[2023-03-12 14:48] LABS: CREATININE 1.1 mg/dL (0.55-1.3)
[2023-03-12 14:50] LABS: BILIRUBIN,TOTAL 0.5 mg/dL (0.2-1); TOT PROT 7.6 g/dl (6.4-8.2)
[2023-03-12] MEDS ORDERED: PANTOPRAZOLE 40 MG TABLET PO ONE ×2 (17:04→17:22)
[2023-03-12] MEDS ORDERED: MAG HYDROX/ALH/SMC/DPHA/LIDO 240 ML MOUTHWASH MM SCH (18:00)
== END 2023-03-12 18:05 | disposition home or self-care (01) ==
LOC: JER 13:11
DX: K29.00 Acute gastritis without bleeding (principal); E11.9 Type 2 diabetes mellitus without complications; R10.10 Upper abdominal pain, unspecified; R11.0 Nausea; Z79.4 Long term (current) use of insulin
CPT/HCPCS: 36415; 74177-TC; 80053; 81003; 82150; 83690; 84703; 85025; 99285-25; Q9967